=== PATIENT | female | born 1945 | race Caucasian/White ===

== ENCOUNTER 2020-03-18 13:30 | Inpatient (IN) | payer MEDICARE ==
[~2020-03-18] VITALS: Ht 152.4 cm; Wt 90.6 kg
[~2020-03-18 13:30] MED LIST: ASPI-496 PO; CHOL100012 PO; DIAZ2TAB3 PO; HYDR2TAB40 PO; IBUP-1221 PO; LANS30CA PO; LEVO100T5 PO; LOSA50TA14 PO; MAGN250T9 PO; METO100T5 PO; METO50TA4 PO; MULT-26 PO; POTA10TA PO; SIMV5TAB14 PO; TRAM50TA2 PO; TRIA1TAB3 PO
[2020-03-18] MEDS ORDERED: ONDANSETRON 2MG/ML, 2ML ONE ×2 (14:46→19:08)
[2020-03-18] MEDS ORDERED: HYDROmorphone 1 MG/ML, 1ML INJ ONE ×3 (14:46→21:18)
[2020-03-18] MEDS: HYDROmorphone 2 MG/ML, 1ML IVPush PRN ×2 (14:55→16:43)
[2020-03-18] MEDS ORDERED: ONDANSETRON 2MG/ML, 2ML IVPush ONE (15:00)
[2020-03-18] MEDS ORDERED: SODIUM CHLORIDE FLUSH 10ML SYR IVF ONE (15:00)
--- NOTE | 2020-03-18 15:17 | NUR ---
PT PRESENTS TO ED WITH C/O LEFT HIP PAIN, WHICH IS CHRONIC SECONDARY TO OSTEOARTHRITIS. PT HAS SCHEDULED LEFT HIP REPLACEMENT 03/31, PT STATES SHE CONTACTED HER OTHROPEDIST WHO INSTRUCTED HER TO COME TO ED FOR INCREASED LEFT HIP PAIN. PIV ESTABLISHED, PT ON BP AND SPO2 MONITORS. PT STATES SHE HAS NOT STRAIGHT CATH'D SELF SINCE THIS AM, REQUESTS RN TO STRAIGHT CATH HER. (PT HAS NEUROGENIC BLADDER). EDMD HAL NOTIFIED, PT STRAIGHT CATH'D WITH MD OLIVAREZ. APPROX 700ML CLEAR YELLOW URINE DRAINED FROM BLADDER. PT'S SPO2 92% PRIOR TO DILAUDID ADMIN, PT PLACED ON 2L OXYGEN VIA NC WITH DILAUDID ADMIN. PT STATES PAIN IMPROVED AT THIS TIME. PT TO RADIOLOGY AT THIS TIME. REPORT GIVEN TO MIRTA MITCHELL WHO IS TO ASSUME CARE.
[2020-03-18 16:19] LABS: BASOPHILS # (AUTO) 0.02 x10^3/uL (0-0.1); BASOPHILS % (AUTO) 0 % (0-1); EOSINOPHILS % (AUTO) 2 % (1-7); LYMPHOCYTES # (AUTO) 1.09 x10^3/uL (1-3.4); LYMPHOCYTES % (AUTO) 11 % (22-44); MD NO; MEAN CORPUSCULAR HEMOGLOBIN 27.8 pg (27.0-34.8); MEAN CORPUSCULAR HGB CONC 33.4 g/dL (32.4-35.8); MEAN CORPUSCULAR VOLUME 83.4 fL (80-100); MEAN PLATELET VOLUME 7.2 fL (7.4-10.4); MONOCYTES # (AUTO) 0.67 x10^3/uL (0.2-0.8); MONOCYTES % (AUTO) 7 % (2-9); NEUTROPHILS # (AUTO) 8.15 x10^3/uL (1.8-6.8); NEUTROPHILS % (AUTO) 81 % (42-75); PLATELET COUNT 266 x10^3/uL (130-400); RED BLOOD COUNT 4.87 x10^6/uL (3.82-5.3); RED CELL DISTRIBUTION WIDTH 15.1 % (9.6-15.2)
[2020-03-18 16:26] LABS: INTERNATIONAL NORMALIZED RATIO 0.98 (0.93-1.1); PROTHROMBIN TIME 10.4 Seconds (9.6-11.5)
[2020-03-18 16:28] LABS: ALBUMIN 3.5 g/dL (3.4-5.0); ANION GAP 8 mmol/L (5-15); CALCIUM 8.7 mg/dL (8.5-10.1); CHLORIDE 100 mmol/L (98-107)
[2020-03-18 16:29] LABS: CREATININE 0.94 mg/dL (0.55-1.02)
--- NOTE | 2020-03-18 16:44 | NUR ---
ortho in room now
[2020-03-18] MEDS: SODIUM CHLORIDE 0.9% 1,000 ML IV SCH (16:47)
[2020-03-18] MEDS ORDERED: LABETALOL 5MG/ML, 20ML IVPush PRN (17:00)
[2020-03-18] MEDS ORDERED: ACETAMINOPHEN 325 MG TABLET PO PRN (17:00)
[2020-03-18] MEDS ORDERED: ONDANSETRON ODT 4 MG PO PRN (17:00)
[2020-03-18] MEDS ORDERED: KETOROLAC 30 MG/1 ML IV PRN ×2 (17:00→21:30)
[2020-03-18] MEDS ORDERED: DOCUSATE 100 MG CAPSULE PO PRN (17:00)
[2020-03-18] MEDS ORDERED: KETOROLAC 60 MG/2 ML ONE (17:21)
[2020-03-18] MEDS ORDERED: VANCOMYCIN 1,000 MG ONE (17:22)
[2020-03-18] MEDS ORDERED: ROPIvacaine/PF 0.2%, 20 ML ONE (17:22)
[2020-03-18] MEDS ORDERED: EPINEPHRINE 1 MG/ML, 1ML ONE (17:22)
[2020-03-18] MEDS ORDERED: TRANEXAMIC ACID 100 MG/ML, 10ML ONE ×2 (17:35)
[2020-03-18] MEDS ORDERED: CHLORHEXIDINE 15 ML UDC ONE (18:18)
[2020-03-18] MEDS ORDERED: ACETAMINOPHEN 650 MG/20.3 ML UDC PO PRN (18:30)
[2020-03-18] MEDS ORDERED: DIAZEPAM 2 MG TABLET PO SCH (19:00)
[2020-03-18] MEDS ORDERED: HYDROmorphone 2MG TABLET PO SCH (19:00)
[2020-03-18] MEDS ORDERED: SUCCINYLCHOLINE 20 MG/ML, 10ML ONE (19:08)
[2020-03-18] MEDS ORDERED: PROPOFOL 10 MG/ML, 20ML ONE (19:08)
[2020-03-18] MEDS ORDERED: CEFAZOLIN 1,000 MG ONE (19:08)
[2020-03-18] MEDS ORDERED: DEXAMETHASONE 4 MG/ML, 1ML ONE (19:08)
[2020-03-18] MEDS ORDERED: ROCURONIUM 10 MG/ML,10ML ONE (19:08)
[2020-03-18] MEDS: FAMOTIDINE 20 MG/2 ML IVPush SCH (21:00)
[2020-03-18] MEDS: METOPROLOL SUCCINATE 100 MG TAB.ER.24H PO SCH (21:00)
[2020-03-18] MEDS ORDERED: OXYcodone 5 MG/5 ML ORAL.SOL UDC ONE (21:21)
[2020-03-18] MEDS: HYDROmorphone 1 MG/ML, 1ML INJ IV PRN ×2 (21:25→21:40)
[2020-03-18] MEDS ORDERED: ALBUTEROL SULFATE 2.5 MG/3 ML NPPB PRN (21:30)
[2020-03-18] MEDS ORDERED: LABETALOL 5MG/ML, 20ML IV PRN (21:30)
[2020-03-18] MEDS ORDERED: ONDANSETRON 2MG/ML, 2ML IVPush PRN (21:30)
[2020-03-18] MEDS ORDERED: MEPERIDINE/PF 25MG/0.5ML IVPush PRN (21:30)
[2020-03-18] MEDS ORDERED: OXYcodone 5 MG/5 ML ORAL.SOL UDC PO PRN (21:30)
[2020-03-18] MEDS ORDERED: FENTANYL PF 100 MCG/2ML IV PRN (21:30)
[2020-03-18] MEDS ORDERED: METOCLOPRAMIDE 5 MG/ML, 2ML IV PRN (21:30)
[2020-03-18] MEDS ORDERED: hydrALAzine 20 MG/ML, 1ML IV PRN (21:30)
[2020-03-18] MEDS ORDERED: PROMETHAZINE 25 MG/ML, 1ML IV PRN (21:30)
[2020-03-18] MEDS ORDERED: DIAZEPAM 5 MG/ML, 2ML IV PRN ×2 (21:30)
[2020-03-18] MEDS ORDERED: hydrALAzine 20 MG/ML, 1ML ONE (21:32)
[2020-03-18 22:10] VITALS: BP 125/70
[2020-03-18] MEDS ORDERED: HYDROMORPHONE MC SCH (23:00)
[2020-03-18] MEDS ORDERED: DIAZEPAM MC SCH (23:00)
[2020-03-18 23:08] VITALS: BP 97/59
[2020-03-18] MEDS: SIMVASTATIN 5 MG TABLET PO SCH (23:09)
[2020-03-18] MEDS: POTASSIUM CHLORIDE 10 MEQ TABLET.ER PO SCH (23:09)
[2020-03-18] MEDS: KETOROLAC 30 MG/1 ML IV SCH (23:18)
[2020-03-18] MEDS: D5%-0.45% NACL 1,000 ML IV SCH (23:18)
[2020-03-19 00:39] VITALS: BP 98/59
[2020-03-19] MEDS: HYDROmorphone 2MG TABLET PO PRN ×4 (01:20→22:30)
[2020-03-19 04:32] VITALS: BP 99/59
[2020-03-19] MEDS: SODIUM CHLORIDE 0.9% 1,000 ML IV SCH ×2 (05:12→19:27)
[2020-03-19 06:00] LABS: BASOPHILS % (AUTO) 0 % (0-1); EOSINOPHILS % (AUTO) 0 % (1-7); LYMPHOCYTES # (AUTO) 0.45 x10^3/uL (1-3.4); LYMPHOCYTES % (AUTO) 4 % (22-44); MD NO; MEAN CORPUSCULAR HEMOGLOBIN 27.5 pg (27.0-34.8); MEAN CORPUSCULAR HGB CONC 32.4 g/dL (32.4-35.8); MEAN CORPUSCULAR VOLUME 84.8 fL (80-100); MEAN PLATELET VOLUME 7.3 fL (7.4-10.4); MONOCYTES # (AUTO) 0.52 x10^3/uL (0.2-0.8); MONOCYTES % (AUTO) 5 % (2-9); NEUTROPHILS # (AUTO) 10.67 x10^3/uL (1.8-6.8); NEUTROPHILS % (AUTO) 92 % (42-75); PLATELET COUNT 240 x10^3/uL (130-400); RED BLOOD COUNT 4.56 x10^6/uL (3.82-5.3); RED CELL DISTRIBUTION WIDTH 15.7 % (9.6-15.2)
[2020-03-19] MEDS ORDERED: ENOXAPARIN 40 MG/0.4 ML SQ SCH ×3 (06:00→17:00)
[2020-03-19] MEDS: D5%-0.45% NACL 1,000 ML IV SCH (06:06)
[2020-03-19 06:07] LABS: ANION GAP 7 mmol/L (5-15); CALCIUM 8.4 mg/dL (8.5-10.1); CHLORIDE 99 mmol/L (98-107)
[2020-03-19 06:08] LABS: CREATININE 1.22 mg/dL (0.55-1.02)
[2020-03-19] MEDS: PANTOPRAZOLE 40MG TABLET PO SCH (06:15)
[2020-03-19] MEDS: KETOROLAC 30 MG/1 ML IV SCH ×2 (06:15→15:26)
[2020-03-19] MEDS: LEVOTHYROXINE 100 MCG TABLET PO SCH (06:15)
[2020-03-19 07:46] VITALS: BP 119/64
[2020-03-19] MEDS: LOSARTAN 50MG TABLET PO SCH (08:18)
[2020-03-19] MEDS: TRIAMTERENE-HCTZ 37.5/25 MG TABLET PO SCH (08:18)
[2020-03-19] MEDS: POTASSIUM CHLORIDE 10 MEQ TABLET.ER PO SCH ×2 (08:18→20:45)
[2020-03-19] MEDS: MAGNESIUM OXIDE 400 MG TABLET PO SCH (08:18)
[2020-03-19] MEDS: METOPROLOL SUCCINATE 50 MG TAB.ER.24H PO SCH (08:18)
[2020-03-19] MEDS: FAMOTIDINE 20 MG/2 ML IVPush SCH (08:20)
[2020-03-19] MEDS: MULTIVITAMINS/MINERALS TABLET PO SCH (08:20)
[2020-03-19] MEDS ORDERED: MULTIVITAMIN 1 TABLET PO SCH (09:00)
[2020-03-19 12:10] VITALS: BP 127/63
[2020-03-19] MEDS ORDERED: KETOROLAC 30 MG/1 ML ONE (15:24)
[2020-03-19] MEDS: ENOXAPARIN 40 MG/0.4 ML SQ SCH (17:02)
[2020-03-19] MEDS: SIMVASTATIN 5 MG TABLET PO SCH (20:44)
[2020-03-19] MEDS: METOPROLOL SUCCINATE 100 MG TAB.ER.24H PO SCH (20:45)
[2020-03-19 20:53] VITALS: BP 114/68
[2020-03-20 01:35] VITALS: BP 98/57
[2020-03-20] MEDS: DIAZEPAM 2 MG TABLET PO PRN (01:52)
[2020-03-20] MEDS ORDERED: DIAZEPAM 2 MG TABLET PO ONE (03:00)
[2020-03-20] MEDS: HYDROmorphone 2MG TABLET PO PRN ×3 (04:10→22:06)
[2020-03-20 05:18] LABS: BASOPHILS # (AUTO) 0.04 x10^3/uL (0-0.1); BASOPHILS % (AUTO) 0 % (0-1); EOSINOPHILS # (AUTO) 0.07 x10^3/uL (0-0.4); EOSINOPHILS % (AUTO) 1 % (1-7); LYMPHOCYTES # (AUTO) 0.93 x10^3/uL (1-3.4); LYMPHOCYTES % (AUTO) 9 % (22-44); MD NO; MEAN CORPUSCULAR HEMOGLOBIN 27.9 pg (27.0-34.8); MEAN CORPUSCULAR HGB CONC 33.3 g/dL (32.4-35.8); MEAN CORPUSCULAR VOLUME 83.8 fL (80-100); MEAN PLATELET VOLUME 7.5 fL (7.4-10.4); MONOCYTES # (AUTO) 1.11 x10^3/uL (0.2-0.8); MONOCYTES % (AUTO) 11 % (2-9); NEUTROPHILS # (AUTO) 7.71 x10^3/uL (1.8-6.8); NEUTROPHILS % (AUTO) 78 % (42-75); PLATELET COUNT 216 x10^3/uL (130-400); RED BLOOD COUNT 4.02 x10^6/uL (3.82-5.3); RED CELL DISTRIBUTION WIDTH 15.3 % (9.6-15.2)
[2020-03-20 05:26] LABS: ANION GAP 10 mmol/L (5-15); CHLORIDE 99 mmol/L (98-107); CREATININE 0.99 mg/dL (0.55-1.02)
[2020-03-20] MEDS: PANTOPRAZOLE 40MG TABLET PO SCH (06:21)
[2020-03-20] MEDS: LEVOTHYROXINE 100 MCG TABLET PO SCH (06:21)
[2020-03-20 07:50] VITALS: BP 126/72
[2020-03-20] MEDS: HYDROmorphone 2 MG/ML, 1ML IVPush PRN ×2 (07:58→09:50)
[2020-03-20] MEDS ORDERED: DEXAMETHASONE 4 MG/ML, 1ML IVPush ONE (08:00)
[2020-03-20] MEDS: SODIUM CHLORIDE 0.9% 1,000 ML IV SCH ×2 (08:47→22:07)
[2020-03-20] MEDS: FAMOTIDINE 20 MG/2 ML IVPush SCH (09:00)
[2020-03-20] MEDS: METOPROLOL SUCCINATE 50 MG TAB.ER.24H PO SCH (09:23)
[2020-03-20] MEDS: MAGNESIUM OXIDE 400 MG TABLET PO SCH (09:23)
[2020-03-20] MEDS: MULTIVITAMINS/MINERALS TABLET PO SCH (09:23)
[2020-03-20] MEDS: POTASSIUM CHLORIDE 10 MEQ TABLET.ER PO SCH ×2 (09:23→21:00)
[2020-03-20] MEDS: LOSARTAN 50MG TABLET PO SCH (09:23)
[2020-03-20] MEDS: TRIAMTERENE-HCTZ 37.5/25 MG TABLET PO SCH (09:23)
[2020-03-20 13:05] VITALS: BP 101/57
[2020-03-20] MEDS: ENOXAPARIN 40 MG/0.4 ML SQ SCH (17:34)
[2020-03-20 18:45] VITALS: BP 115/75
[2020-03-20] MEDS: METOPROLOL SUCCINATE 100 MG TAB.ER.24H PO SCH (22:06)
[2020-03-20] MEDS: SIMVASTATIN 5 MG TABLET PO SCH (22:07)
[2020-03-21 00:30] VITALS: BP 110/70
[2020-03-21] MEDS: HYDROmorphone 2MG TABLET PO PRN ×6 (02:22→21:59)
[2020-03-21 05:23] LABS: BASOPHILS # (AUTO) 0.03 x10^3/uL (0-0.1); BASOPHILS % (AUTO) 0 % (0-1); EOSINOPHILS # (AUTO) 0.01 x10^3/uL (0-0.4); EOSINOPHILS % (AUTO) 0 % (1-7); LYMPHOCYTES # (AUTO) 0.92 x10^3/uL (1-3.4); LYMPHOCYTES % (AUTO) 9 % (22-44); MD NO; MEAN CORPUSCULAR HEMOGLOBIN 27.7 pg (27.0-34.8); MEAN CORPUSCULAR HGB CONC 32.7 g/dL (32.4-35.8); MEAN CORPUSCULAR VOLUME 84.6 fL (80-100); MEAN PLATELET VOLUME 7.8 fL (7.4-10.4); MONOCYTES # (AUTO) 1.09 x10^3/uL (0.2-0.8); MONOCYTES % (AUTO) 11 % (2-9); NEUTROPHILS # (AUTO) 8.07 x10^3/uL (1.8-6.8); NEUTROPHILS % (AUTO) 80 % (42-75); PLATELET COUNT 224 x10^3/uL (130-400); RED BLOOD COUNT 4.03 x10^6/uL (3.82-5.3); RED CELL DISTRIBUTION WIDTH 15.3 % (9.6-15.2)
[2020-03-21 05:35] LABS: ANION GAP 6 mmol/L (5-15); CALCIUM 8.1 mg/dL (8.5-10.1); CHLORIDE 101 mmol/L (98-107); CREATININE 0.84 mg/dL (0.55-1.02)
[2020-03-21] MEDS: PANTOPRAZOLE 40MG TABLET PO SCH (06:20)
[2020-03-21] MEDS: LEVOTHYROXINE 100 MCG TABLET PO SCH (06:20)
[2020-03-21 06:45] VITALS: BP 129/70
[2020-03-21 08:23] VITALS: BP 109/59
[2020-03-21] MEDS: TRIAMTERENE-HCTZ 37.5/25 MG TABLET PO SCH (08:31)
[2020-03-21] MEDS: POTASSIUM CHLORIDE 10 MEQ TABLET.ER PO SCH ×2 (08:32→21:58)
[2020-03-21] MEDS: MAGNESIUM OXIDE 400 MG TABLET PO SCH (08:32)
[2020-03-21] MEDS: LOSARTAN 50MG TABLET PO SCH (08:32)
[2020-03-21] MEDS: MULTIVITAMINS/MINERALS TABLET PO SCH (08:32)
[2020-03-21] MEDS: FAMOTIDINE 20 MG/2 ML IVPush SCH (08:32)
[2020-03-21] MEDS: METOPROLOL SUCCINATE 50 MG TAB.ER.24H PO SCH (08:32)
[2020-03-21] MEDS: SODIUM CHLORIDE 0.9% 1,000 ML IV SCH (11:27)
[2020-03-21] MEDS ORDERED: ASPI81TA45 PO (11:59)
[2020-03-21] MEDS: DIAZEPAM 2 MG TABLET PO PRN ×2 (12:04→21:58)
[2020-03-21 12:59] VITALS: BP 131/59
[2020-03-21] MEDS: IBUPROFEN 600 MG TABLET PO SCH (18:20)
[2020-03-21] MEDS: ENOXAPARIN 40 MG/0.4 ML SQ SCH (18:20)
[2020-03-21 18:52] VITALS: BP 149/71
[2020-03-21] MEDS: METOPROLOL SUCCINATE 100 MG TAB.ER.24H PO SCH (21:58)
[2020-03-21] MEDS: SIMVASTATIN 5 MG TABLET PO SCH (21:58)
[2020-03-22 01:04] VITALS: BP 137/79
[2020-03-22] MEDS: HYDROmorphone 2MG TABLET PO PRN ×2 (02:25→06:04)
[2020-03-22] MEDS: IBUPROFEN 600 MG TABLET PO SCH ×2 (02:25→10:35)
[2020-03-22 05:36] LABS: BASOPHILS # (AUTO) 0.03 x10^3/uL (0-0.1); BASOPHILS % (AUTO) 0 % (0-1); EOSINOPHILS # (AUTO) 0.24 x10^3/uL (0-0.4); EOSINOPHILS % (AUTO) 3 % (1-7); LYMPHOCYTES # (AUTO) 1.83 x10^3/uL (1-3.4); LYMPHOCYTES % (AUTO) 23 % (22-44); MD NO; MEAN CORPUSCULAR HEMOGLOBIN 28.1 pg (27.0-34.8); MEAN CORPUSCULAR VOLUME 85.2 fL (80-100); MEAN PLATELET VOLUME 7.4 fL (7.4-10.4); MONOCYTES # (AUTO) 0.86 x10^3/uL (0.2-0.8); MONOCYTES % (AUTO) 11 % (2-9); NEUTROPHILS # (AUTO) 5.09 x10^3/uL (1.8-6.8); NEUTROPHILS % (AUTO) 63 % (42-75); PLATELET COUNT 257 x10^3/uL (130-400); RED BLOOD COUNT 3.96 x10^6/uL (3.82-5.3); RED CELL DISTRIBUTION WIDTH 15.2 % (9.6-15.2)
[2020-03-22 05:49] LABS: ANION GAP 10 mmol/L (5-15); CALCIUM 8.4 mg/dL (8.5-10.1); CHLORIDE 100 mmol/L (98-107)
[2020-03-22] MEDS: LEVOTHYROXINE 100 MCG TABLET PO SCH (06:03)
[2020-03-22] MEDS: PANTOPRAZOLE 40MG TABLET PO SCH (06:03)
[2020-03-22 08:51] VITALS: BP 151/70
[2020-03-22] MEDS: FAMOTIDINE 20 MG/2 ML IVPush SCH (09:00)
[2020-03-22] MEDS: TRIAMTERENE-HCTZ 37.5/25 MG TABLET PO SCH (10:35)
[2020-03-22] MEDS: MULTIVITAMINS/MINERALS TABLET PO SCH (10:35)
[2020-03-22] MEDS: METOPROLOL SUCCINATE 50 MG TAB.ER.24H PO SCH (10:35)
[2020-03-22] MEDS: POTASSIUM CHLORIDE 10 MEQ TABLET.ER PO SCH (10:35)
[2020-03-22] MEDS: MAGNESIUM OXIDE 400 MG TABLET PO SCH (10:35)
[2020-03-22] MEDS: LOSARTAN 50MG TABLET PO SCH (10:35)
[2020-03-22 12:13] VITALS: BP 130/73
[2020-03-23] MEDS ORDERED: FAMOTIDINE 20 MG TABLET PO SCH (09:00)
== END 2020-03-22 13:26 | disposition home health service (06) | DRG 470 ==
LOC: ED 16:07 → EDIP 16:08 → 4NE 22:11 → DCLOUNGE 03-22 13:20
PROVIDERS: ADMIT Hospitalist; ATTEND Hospitalist
PROC: 0SRB0JZ Replacement of Left Hip Joint with Synthetic Substitute, Open Approach (ICD-10-PCS; principal; 2020-03-18 18:30)
DX: S72.012A Unspecified intracapsular fracture of left femur, initial encounter for closed fracture (principal); M19.90 Unspecified osteoarthritis, unspecified site; K21.9 Gastro-esophageal reflux disease without esophagitis; M16.12 Unilateral primary osteoarthritis, left hip; Z96.653 Presence of artificial knee joint, bilateral; I10 Essential (primary) hypertension; G89.29 Other chronic pain; R12 Heartburn; Z79.899 Other long term (current) drug therapy; Z88.5 Allergy status to narcotic agent; Z90.710 Acquired absence of both cervix and uterus; Z90.89 Acquired absence of other organs; Z88.8 Allergy status to other drugs, medicaments and biological substances; Z82.49 Family history of ischemic heart disease and other diseases of the circulatory system; Z82.5 Family history of asthma and other chronic lower respiratory diseases
CPT/HCPCS: 36415; 80048; 82040; 85025; 85610; 87070; 87075; 87205; 93005; 99285; C1713; G0378; J0171; J0690; J1100; J1170; J1650; J1885; J2405; J2704; J2795; J3370; Q0162; C1776; J0330; J0360; J7030